=== PATIENT | female | born 1965 | race Caucasian/White ===

== ENCOUNTER 2016-07-01 14:18 | Observation (INO) | payer MEDICAID, OTHER ==
[2016-07-01] MEDS ORDERED: ALBUTEROL SULFATE/IPRATROPIUM 3 ML NEBU IH ONE ×2 (16:49→16:59)
[2016-07-01] MEDS ORDERED: METHYLPREDNISOLONE SOD SUCC/PF 40 MG/ML VIAL IV ONE ×2 (16:49→22:24)
[2016-07-01] MEDS ORDERED: METHYLPREDNISOLONE SOD SUCC/PF 40 MG/ML VIAL ONE (16:59)
--- NOTE | 2016-07-01 17:05 | ERNOTE ---
Date of Service: 07/01/16 Time Seen by Provider: 07/01/16 16:05 Stated Complaint: SOB, COLD Presenting Symptoms:: cough, other - SOB Source: patient Exam Limitations: no limitations Immunizations: IMMUNIZATION HX Immunizations Up to Date Yes History of Influenza Vaccine No Hx Pneumococcal Vaccination No Allergies/Adverse Reactions: Allergies codeine Allergy (Severe, Verified 07/01/16 14:29) Other Passed out Penicillins Adverse Reaction (Verified 07/01/16 14:29) Hives Home Medications: HOME MEDICATIONS Albuterol Sulfate [Proair Hfa] 2 puff IH Q4H PRN #1 inhaler 08/21/14 [Last Taken Unknown] Prednisone 40 mg PO DAILY 07/01/16 [Last Taken Unknown] - History of Present Ilness Narrative: Pt. comes in with c/o cough, SOB, headache, dizziness, diaphoresis, chills for four weeks. Pt. is a former smoker and she has a hx of COPD. Pt. states that she is taking her neb tx every two hours as she has been unable to control her bronchospasms. Pt. states taht she was treated in the [facility] a week ago and today took her last abx pill and is not improving despite taking abx and steroids for a week. Review of Systems - Review of Systems Constitutional: Present: chills, diaphoresis, weakness, fatigue, malaise. Absent: fever EYE: Present: no symptoms reported ENT: Present: no symptoms reported Respiratory: Present: shortness of breath, cough, orthopnea, wheezing Cardiology: Absent: chest pain, palpitations, edema Gastrointestinal/Abdominal: Present: no symptoms reported. Absent: nausea, vomiting, diarrhea Genitourinary: Present: no symptoms reported Musculoskeletal: Present: no symptoms reported. Absent: back pain, joint pain Skin: Present: no symptoms reported Neurological: Present: headache, dizziness/light-headedness. Absent: weakness, numbness, tingling All Other Systems: All systems neg except as marked - Patient's Past Medical History Patient History - Cardiac/Respiratory: No pertinent hx Patient History - Cancer: No Hx of Cancer Patient History - Surgical Procedures: Cardiac stent, Tubal Ligation, T & A, Other Patient History - Other: None - Social History Living Situations: home Alcohol Use: none Drug Use: none - Immunizations Immunizations Up to Date: Yes Hx Pneumococcal Vaccination: No History of Influenza Vaccine: No Physical Exam - Physical Exam General Appearance: Present: wd/wn, alert, no apparent distress Eye Exam: Normal inspection: bilateral, PERRL: bilateral, EOMI: bilateral Ears, Nose, Throat: Present: normal ENT inspection, hearing grossly normal, normal pharynx Neck: Present: normal inspection, nontender. Absent: lymphadenopathy (R), lymphadenopathy (L) Respiratory: Present: respiratory distress - tripod, decreased breath sounds - L lung completely decreased R lung mid to base, expiration (prolonged). Absent : crackles, rales, rhonchi, wheezing Cardiovascular/Chest: Present: regular rate, rhythm, no murmur, normal peripheral pulses Gastrointestinal/Abdominal: Present: normal bowel sounds, nontender, nondistended, soft, no organomegaly Back Exam: Present: normal inspection, normal range of motion, no CVA tenderness , no vertebral tenderness Extremity Exam: Present: normal inspection, non-tender, no edema, normal range of motion Neurological Exam: Present: alert, oriented, normal mood/affect, no motor/ sensory deficits Skin Exam: Present: warm/dry, pallor. Absent: skin rash ED Progress - Date and Time Seen: Date and Time: 07/01/16 21:22 Discussed case with Angela and we will admit for failed outpatient treatment. - Results and Orders Patient's Lab Results:: I have reviewed the patient's lab results. - Vital Signs Patient's Vital Signs:: I have reviewed the patient's vital signs. Vital Signs: Vital Signs 07/01/16 14:23 Temperature 36.1 C L Pulse Rate 84 Respiratory 12 Rate Blood Pressure 132/79 O2 Sat by Pulse 95 Oximetry - EKG EKG: NSR EKG read: Interp. by me - X-Ray X-Ray #1 X-Ray: chest Interpretation: Interp. by me X-ray Comments: emphasematous changes. - Progress/Reassessment Chief Complaint: Upper Respiratory Symptoms Progress:: Unchanged Departure - Departure Clinical Impression: Failure of outpatient treatment, Bronchitis, Lactic acid acidosis COPD (chronic obstructive pulmonary disease) with emphysema Qualifiers: Emphysema type: unspecified Qualified Code(s): J43.9 - Emphysema, unspecified Disposition: [facility] Condition: Fair
[2016-07-01 17:11] LABS: Hemoglobin 15.8 gm/dL (12.5-16.0); Mean Cell Volume 93.4 fl (78-100); Mean Corpuscular Hemoglobin 30.7 pg (27-31); Mean Corpuscular Hgb Conc 32.9 g/dl (32-36); Mean Platelet Volume 9.7 fl (6.0-9.5); Neutrophil # 6.8 K/mm3 (1.3-6.0); Neutrophil % 84.9 % (42-75.0); Platelet Count 246 K/mm3 (150-450); Red Blood Count 5.14 M/mm3 (4.2-5.4); Red Cell Distribution Width 13.1 % (11.5-14.0)
[2016-07-01 17:30] LABS: Albumin * 3.5 gm/dl (3.4-5.0); Anion Gap 11.2 mmol/L (6.8-13.8); BUN/Creatinine Ratio 14.6 (9.0-21.6); Bilirubin, Total 0.3 mg/dL (0.0-1.1); Ca. Corrected For Albumin 9.5 mg/dL (8.4-10.2); Calcium * 9.4 mg/dL (7.9-10.9); Carbon Dioxide 28.5 mmol/L (24-32.6); Potassium 3.7 mmol/L (3.4-4.6); Total Protein 7.3 gm/dL (6.2-8.2)
[2016-07-01] MEDS ORDERED: NORMAL SALINE 1,000 ML IV PRN (17:41)
[2016-07-01] MEDS ORDERED: LEVOFLOXACIN/D5W 500 MG in Premix Bag 1 BAG IV SCH (17:45)
[2016-07-01 17:59] LABS: Hemoglobin A1C 5.7 % (4.00-6.0)
[2016-07-01] MEDS ORDERED: AZITHROMYCIN 500 MG in DEXTROSE 5 % IN WATER 250 ML IV ONE ×2 (19:30)
[2016-07-01] MEDS ORDERED: ALBUTEROL SULFATE/IPRATROPIUM 3 ML NEBU IH PRN (22:24)
--- NOTE | 2016-07-01 23:14 | HP ---
Chief Complaint - Chief Complaint Date of Service: 07/01/16 Time of Service: 23:14 Chief Complaint: Weakness, History of Present Illness: Ms Hall is a 51-yr-old WF who has no pertinent medical history and no PCP. Pt states that she developed URI symptoms 3 weeks ago. The symptoms involved nasal congestion & drainage, coughing, headaches and sinus pressure. She decided to treat the symptoms with OTC medications. The symptoms hardly improved and so she went [facility]16 with complaints of sore throat, nasal congestion, sinus pressure, coughing & LIMON. The rapid step test was negative. She received IM Solumedrol at the office and was discharged home on levaquin, Prednisone & Albuterol nebulizer treatments. She reports that she took the medicine as ordered, but has not felt any better. She says " I feel my head is still full of pressure and am not over my cold." Her cough has not improved and is mostly non- productive. She admits to feeling SOB but more with activity, and not any worse today. She took her breathing treatments 1 hour early sometimes, but denies increasing it's use than the times ordered/advised. She is a current smoker and admits to continued smoking during the illeness, even though she says, she cut from 1 ppd to 2 cigarettes. She denies fever & chills. She also denies n/v, abd pain, diarrhea and C.P. She reports feeling frustrated that she was not getting any better with her symptoms, was feeling more tired/ weaker, slept longer hours than usual, and so she went back to the Walk -in clinic this am. She says there was a long line of patients to be seen, and so she chose to go to the ED. During evaluation at the ED, the CXR at the ED did not have any indications of pneumonia or pleural effusion. Her laboratory studies was mostly unremarkable except for elevated lactid acid of 2.1. She appeared to have laboured breathing, had exp. wheezing and received treatment with IV Solumedrol and Neb. treatments. She will be admitted under observation status to ensure she does not deteriorate from airway limitation. - Patient's Past Medical History Patient History - Medical: No pertinent hx Patient History - Cardiac/Respiratory: No pertinent hx Patient History - Cancer: No Hx of Cancer Patient History - Surgical Procedures: , Tubal Ligation, T & A, Other Patient History - Other: None - Family History Father Family History - Medical: History Unknown Mother Family History - Medical: History Unknown - Social History Living Situations: other Smoking Status: Current every day smoker Have you smoked in the past 12 months: Yes Alcohol Use: none Drug Use: none - Immunizations Immunizations Up to Date: Yes Hx Pneumococcal Vaccination: Yes History of Influenza Vaccine: Yes Review Of Systems (GEN) - Review of Systems Generalized/Overall Review: Present: Weakness. Absent: Chills EENTM: Present: Nose Pain, Nose Congestion. Absent: Eye Pain, Blurred Vision, Double Vision Respiratory: Present: Cough, Shortness of Breath, Wheezing Cardiac: Absent: Chest Pain, Edema, Palpitations Abdominal: Absent: Nausea, Vomiting, Hematemesis, Abdominal Pain Genitourinary: Absent: Burning, Itching, Frequency, Hematuria Musculoskeletal: Absent: Joint Pain, Back Pain, Joint Swelling Neurological: Present: Headache, Weakness. Absent: Anxiety, Depressed Skin: Absent: Dryness, Lesions, Lumps Endocrine: Present: Intolerance to Cold, Intolerance to Heat. Absent: Increased Hunger, Increased Thirst Misc: All systems neg except as marked Immunizations: IMMUNIZATION HX Immunizations Up to Date Yes History of Influenza Vaccine No Hx Pneumococcal Vaccination No Allergies/Adverse Reactions: Allergies Allergy/AdvReac Type Severity Reaction Status Date / Time codeine Allergy Severe Other Verified 07/01/16 22:48 Penicillins AdvReac Hives Verified 07/01/16 22:48 Home Medications: HOME MEDICATIONS Albuterol Sulfate [Proair Hfa] 2 puff IH Q4H PRN #1 inhaler 08/21/14 [Last Taken Unknown] Exam - Exam Vital Signs: Vital Signs - Last Taken Temp 36.8 C 07/01/16 22:17 Pulse 85 07/01/16 22:17 Resp 18 07/01/16 22:17 BP 143/72 07/01/16 22:17 Pulse Ox 93 07/01/16 22:17 Constitutional: Present: Alert, Oriented x3, No distress ENT Exam: Present: normal ENT inspection, hearing grossly normal, muffled/ hoarse voice Eye Exam: bilateral eye: normal inspection, PERRL Neck: Present: full range of motion, supple, normal inspection, trachea midline Back Exam: Present: no CVA tenderness Breasts: Present: Exam deferred Respiratory: Present: no accessory muscle use, decreased breath sounds, No wheezing Cardiovascular/Chest: Present: normal peripheral pulses, regular rate, rhythm, no murmur Abdomen: Present: Normal bowel sounds, soft, nontender /Rectal: Present: Exam deferred Extremity: Present: non-tender, normal inspection, no pedal edema, no calf tenderness Skin Exam: Present: warm/dry, no cyanosis Neurologic: Present: no motor/sensory deficits, alert, normal mood/affect, oriented x 3 Appearance: Present: appropriate appearance, appropriate insight Eye contact: Present: cooperative, good eye contact, normal speech Thoughts: Present: normal thought pattern, no apparent hallucination Diagnostic Studies: Laboratory Results WBC 8.0 K/mm3 (4.0-10.5) 07/01/16 17:03 RBC 5.14 M/mm3 (4.2-5.4) 07/01/16 17:03 Hgb 15.8 gm/dL (12.5-16.0) 07/01/16 17: Hct 48.0 % (37.0-47.0) H 07/01/16 17:03 MCV 93.4 fl (78-100) 07/01/16 17: MCH 30.7 pg (27-31) 07/01/16 17:03 MCHC 32.9 g/dl (32-36) 07/01/16 17:03 RDW 13.1 % (11.5-14.0) 07/01/16 17:03 Plt Count 246 K/mm3 (150-450) 07/01/16 17:03 MPV 9.7 fl (6.0-9.5) H 07/01/16 17:03 Immature Gran % (Auto) 0.50 % (0.001-0.429) H 07/01/16 17:03 Immature Gran # (Auto) 0.04 K/mm3 (0.000-0.0310) H 07/01/16 17:03 Neutrophils % 84.9 % (42-75.0) H 07/01/16 17:03 Lymphocytes % 12.0 % (20-51) L 07/01/16 17:03 Monocytes % 2.4 % (0.0-9) 07/01/16 17:03 Eosinophils % 0.1 % (0.0-3.0) 07/01/16 17:03 Basophils % 0.1 % (0.0-1.0) 07/01/16 17:03 Nucleated RBC % 0.0 k/mm3 (0-1) 07/01/16 17:03 Neutrophils # 6.8 K/mm3 (1.3-6.0) H 07/01/16 17:03 Lymphocytes # 1.0 k/mm3 (1.5-3.5) L 07/01/16 17:03 Monocytes # 0.2 k/mm3 (0.0-1.0) 07/01/16 17:03 Eosinophils # 0.0 k/mm3 (0.0-0.7) 07/01/16 17:03 Absolute Basophils 0.0 k/mm3 (0.0-0.1) 07/01/16 17:03 pCO2 33.8 mmHg (32.0-45.0) 07/01/16 21:12 pO2 70.3 mmHg (83.0-108.0) L 07/01/16 21:12 HCO3 21.5 mmol/L (21.0-28.0) 07/01/16 21:12 Total CO2 22.5 mmol/L (19.0-24.0) 07/01/16 21:12 Base Excess -2.1 mmol/L (-2.0-3.0) L 07/01/16 21:12 ABG pH 7.42 (7.35-7.45) 07/01/16 21:12 ABG O2 Sat (Measured) 94.6 % (94.0-98.0) 07/01/16 21:12 Sodium 140 mmol/L (132-142) 07/01/16 17:03 Plasma Sodium 142 mmol/L (130-142) 07/01/16 17:03 Potassium 3.7 mmol/L (3.4-4.6) 07/01/16 17:03 Chloride 104 mmol/L (97-106) 07/01/16 17:03 Carbon Dioxide 28.5 mmol/L (24-32.6) 07/01/16 17:03 Anion Gap 11.2 mmol/L (6.8-13.8) 07/01/16 17:03 BUN 13 mg/dL (3-23) D 07/01/16 17:03 Creatinine 0.89 mg/dL (0.4-1.4) 07/01/16 17:03 Est GFR (Non-Af Amer) 71 mL/min (60-130) D 07/01/16 17:03 BUN/Creatinine Ratio 14.6 (9.0-21.6) 07/01/16 17:03 Random Glucose 198 mg/dL (70-110) H 07/01/16 17:03 Mean Blood Glucose 104 mg/dL 07/01/16 17:44 Hemoglobin A1c 5.7 % (4.00-6.0) 07/01/16 17:44 Lactic Acid, Venous 3.2 mmol/L (0.4-2.0) H* 07/01/16 19:51 Calcium 9.4 mg/dL (7.9-10.9) 07/01/16 17:03 Calcium Adj for Albumin 9.5 mg/dL (8.4-10.2) 07/01/16 17:03 Total Bilirubin 0.3 mg/dL (0.0-1.1) 07/01/16 17:03 AST 16 U/L (0-48) 07/01/16 17:03 ALT 39 U/L (19-67) 07/01/16 17:03 Alkaline Phosphatase 146 U/L (50-170) 07/01/16 17:03 B-Natriuretic Peptide 62 pg/mL (5-150) 07/01/16 17:03 Total Protein 7.3 gm/dL (6.2-8.2) 07/01/16 17:03 Albumin 3.5 gm/dl (3.4-5.0) 07/01/16 17:03 Assessment/Plan - Assessment/Plan (1) Viral bronchitis Assessment: Ms. Hall reports URI symptoms that begun 3 weeks ago. The symptoms involved nasal congestion & drainage, coughing, headaches and sinus pressure. She decided to treat the symptoms with OTC medications. Her symptoms failed to improve and so she went to the [facility] on 06[facility]16 with complaints of sore throat, nasal congestion, sinus pressure, coughing & LIMON. She received IM Solumedrol at the office and was discharged home on levaquin, Prednisone & Albuterol nebulizer treatments. She reports that she took the medicine as ordered, but has not felt any better. I suspect that her clinical presentation today fits viral bronchitis. This is due to: initial presentation of cold symptoms 3 weeks ago, and failure of URI symptoms response to Antibiotic treatment making it likely that the cause was viral vs bacterial & also normal CXR findings. Also acute bronchitis is a consideration when cough has been present for more than 5 days and pt is going into week 3 with complains of cough. There maybe mild dyspnea and can due to bronchospasm from coughing.Will pursue symptomatic treatment with; albuterol treatments, NSAIDs, cough suppressants & encourage smoking cessation. Problem: Acute (2) Lactic acidosis Assessment: The WBC was normal, no fevers, No infection on UA & CXR & stable V.S. The Lactic elevation is likely related to the albuterol treatments. Problem: Acute (3) COPD (chronic obstructive pulmonary disease) Assessment: She has never had the Spirometry testing to confirm the diagnosis,however, her presentation may be new onset, or may have overlapped with URI. She did not have any desaturation of POX on presentation. Encourage physician follow-up as treatment depends on spirometry test, disease severity and clinical presentation. Encourage smoking cessation Problem: Suspected (4) Nicotine dependence Problem: Chronic
[2016-07-01] MEDS: NORMAL SALINE 1,000 ML IV PRN (23:15)
[2016-07-02] MEDS ORDERED: ALBUTEROL SULFATE 2.5 MG/0.5 ML VIAL.NEB IH PRN (00:22)
[2016-07-02] MEDS: ALBUTEROL SULFATE/IPRATROPIUM 3 ML NEBU IH SCH ×3 (00:22→13:11)
[2016-07-02 02:05] LABS: Urine Bilirubin Negative (NEGATIVE); Urine Blood 25 /ul (NEGATIVE); Urine Ketone Negative (NEGATIVE); Urine Nitrite Negative (NEGATIVE); Urine Protein Negative (NEGATIVE); Urine Specific Gravity 1.025 SP.GR. (1.005-1.010); Urine Urobilinogen Normal (NORMAL)
[2016-07-02] MEDS ORDERED: ACETAMINOPHEN 325 MG TABLET PO PRN (02:05)
[2016-07-02 02:16] LABS: Urine Appearance Clear; Urine Bacteria TRACE; Urine Color Pale Yellow; Urine RBC None Seen /hpf (0-5); Urine WBC None Seen /hpf (0-5)
[2016-07-02 06:11] LABS: Hematocrit 40.2 % (37.0-47.0); Hemoglobin 13.3 gm/dL (12.5-16.0); Mean Cell Volume 93.5 fl (78-100); Mean Corpuscular Hemoglobin 30.9 pg (27-31); Mean Corpuscular Hgb Conc 33.1 g/dl (32-36); Mean Platelet Volume 9.8 fl (6.0-9.5); Neutrophil # 6.1 K/mm3 (1.3-6.0); Neutrophil % 83.8 % (42-75.0); Platelet Count 222 K/mm3 (150-450); Red Cell Distribution Width 13.1 % (11.5-14.0); White Blood Count 7.3 K/mm3 (4.0-10.5)
[2016-07-02 06:23] LABS: Anion Gap 13.8 mmol/L (6.8-13.8); BUN/Creatinine Ratio 12.9 (9.0-21.6); Calcium * 8.8 mg/dL (7.9-10.9); Carbon Dioxide 24.3 mmol/L (24-32.6); Potassium 4.1 mmol/L (3.4-4.6)
--- NOTE | 2016-07-02 06:50 | DS ---
(1) Viral bronchitis Problem: Acute (2) Lactic acidosis Problem: Acute (3) COPD (chronic obstructive pulmonary disease) Problem: Suspected (4) Nicotine dependence Problem: Chronic Description of Stay: Ms Hall is a 51-yr-old WF who has no pertinent medical history and no PCP. Pt states that she developed URI symptoms 3 weeks ago. The symptoms involved nasal congestion & drainage, coughing, headaches and sinus pressure. She decided to treat the symptoms with OTC medications. The symptoms hardly improved and so she went to the [facility] on 06/26/16 with complaints of sore throat, nasal congestion, sinus pressure, coughing & LIMON. The rapid step test was negative. She received IM Solumedrol at the office and was discharged home on levaquin, Prednisone & Albuterol nebulizer treatments. She reported that she took the medicine as ordered, but did not feel any better. Her cough was mostly non- productive. She admitted to feeling SOB but more with activity, and not worse on day of admission. She took her breathing treatments 1 hour early sometimes, but denied increasing it's use than the times ordered/advised. She is a current smoker and admits to continued smoking during the illness, even though she says, she cut from 1 ppd to 2 cigarettes. She denied fever & chills. She also denied n/v, abd pain, diarrhea and C.P. She felt frustrated that she was not getting any better with her symptoms, was feeling more tired/weaker, slept longer than usual. She presented to the ED on 07/01/16 for cough & SOB. During evaluation at the ED, the CXR at the ED did not have any indications of pneumonia or pleural effusion. Her laboratory studies was mostly unremarkable except for elevated lactid acid of 2.1, but this was linked to medication use ( beta -2 agonist) vs infection. She appeared to have laboured breathing, had exp. wheezing and received treatment with IV Solumedrol, Neb. treatments and IV antibiotics. She was admitted under observation status to ensure she did not deteriorate from airway limitation. During the overnight stay in the hospital, she received scheduled duonebs. She never required any oxygen supplementation and maintained her POX > 92% at the ED & while in the med-surge unit. Her clinical presentation fit viral bronchitis vs COPD exacerbation. Off note she has never had a Spirometry testing to determine confirm diagnosis of COPD. She will be discharged on Cough suppressant. She was encouraged to stop smoking and keep up with supportive cares: fluids, rest, humidifier, APAP or NSAIDs. She is in a stable condition to be discharged home. She will follow- up with Dr. Jaramillo next week. Procedures Performed: none Discharge Disposition: Home self care Disposition: Home self-care Condition: Good Discharge Activity: Activity as tolerated Discharge Diet: General/regular food Problem Oriented Discharge Instructions to Patient/Family: Smoking Cessation, Tips for Success, [id number], Bronchospasm, Adult Additional Patient Instructions (free text): Follow-up with Dr. Claudine Jaramillo next week. Prescriptions (Any new or edited meds): Dextromethorphan/Pseudoephed [Expectorant Max Cough-Cold] 5 ml PO QID #140 liquid Complete Home Medications List: Complete Home Medication List: Albuterol Sulfate [Proair Hfa] 2 puff IH Q4H PRN #1 inhaler 08/21/14 Dextromethorphan/Pseudoephed [Expectorant Max Cough-Cold] 5 ml PO QID #140 liquid 07/02/16
[2016-07-02] MEDS: NORMAL SALINE 1,000 ML IV PRN (07:18)
[2016-07-02] MEDS ORDERED: NORMAL SALINE 1,000 ML IV ONE (09:37)
[2016-07-02 11:03] VITALS: BP 128/62
== END 2016-07-02 17:00 | disposition home or self-care (01) ==
LOC: ER 14:18 → MS 21:23
PROVIDERS: ADMIT Nurse Practitioner; ATTEND Internal Medicine
DX: J20.8 Acute bronchitis due to other specified organisms (principal); E87.2 Acidosis; F17.200 Nicotine dependence, unspecified, uncomplicated
CPT/HCPCS: 36415; 36600; 71020; 80048; 80053; 81001; 82803; 83036; 83605; 83880; 85025; 87040; 93005; 94640; 96365; 96367; 96375; 99284; G0378